=== PATIENT | male | born 1950 | race African-American/Black ===

== ENCOUNTER 2017-05-28 14:31 | Emergency (ER) | payer MEDICARE ==
[~2017-05-28] VITALS: Ht 188 cm; Wt 99.0 kg
[~2017-05-28 14:31] MED LIST: BRIM0.2S4 LEFT EYE; DORZ2SOL LEFT EYE; HYDR25TA5 PO; LATA0.002 EACH EYE; LEVO.075 PO; LOSA100T PO; LOVA20TA PO; PERC10TA27 PO; TRIMSOL EACH EYE; ZOFR4TAB3 SL
[2017-05-28 14:42] VITALS: BP 145/98; PULSE 80; RESP 16; TEMP 98.7; O2SAT 98
[2017-05-28] MEDS ORDERED: ORPHENADRINE INJ 60 MG/2 ML AMP IM ONE (15:30)
[2017-05-28] MEDS ORDERED: KETOROLAC TROMETHAMINE 60 MG/2 ML (IM) VIAL IM ONE (15:30)
[2017-05-28 16:50] VITALS: RESP 18
--- NOTE | 2017-05-28 16:57 | RADRPT ---
EXAM DATE/TIME: 05/28/2017 16:26 [facility] COMPARISON: CT ABDOMEN & PELVIS W CONTRAST, January 27, 2015, 19:10. INDICATIONS : Low back pain after lifting a lawnmower MEDICAL HISTORY : None. SURGICAL HISTORY : Neck surgery ENCOUNTER: Initial ACUITY: 1 week PAIN SCORE: 8/10 LOCATION: Bilateral low back FINDINGS: Mild superior endplate compression deformity at L5. Remaining vertebral body heights are intact. Size alignment is maintained. Mild degenerative spondylosis of the lower lumbar spine with mild multileve l facet arthropathy. Soft tissues are unremarkable. CONCLUSION: 1. Mild L5 superior end plate compression fracture. 2. Mild degenerative spondylosis of the lower lumbar spine. Mehran Lafleur MD on May 28, 2017 at 16:52 Board Certified Radiologist. This report was verified electronically.
[2017-05-28] MEDS ORDERED: NAPR500T2 PO (17:22)
[2017-05-28] MEDS ORDERED: ROBA750T PO (17:22)
--- NOTE | 2017-05-28 17:28 | PD ---
HPI Chief Complaint: Musculoskeletal Complaint Time Seen by Provider: 15:21 Travel History International Travel<30 days: No Contact w/Intl Traveler<30days: No Traveled to known affect area: No History of Present Illness HPI 67-year-old male patient presents emergency department for evaluation of lower back pain 10 days. Patient denies any injuries, falls, traumas precipitating the pain. After further questioning the patient states that he lifted a lawnmower into the back of his truck before the pain presented but it was not correlated with the start of the pain so he is not sure if that's the cause. Patient denies any fever, chills, malaise, abdominal pain, nausea, vomiting, shortness breath, chest pain. Patient denies any IV drug use, saddle numbness, incontinence of urine or stool. Patient is ambulatory from triage without a limp. 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, THROAT) Cardiovascular Problems: Yes (htn on meds) High Cholesterol: Yes Chemotherapy: Yes (2014) Congestive Heart Failure: No Cerebrovascular Accident: No Diabetes: No Diminished Hearing: No Endocrine: Yes Glaucoma: Yes ([place]) Genitourinary: No Hepatitis: No Hiatal Hernia: No Hypertension: Yes Immune Disorder: Yes Implanted Vascular Access Dvce: Yes Musculoskeletal: Yes (cervical fusion 2012) Neurologic: No Psychiatric: No Reproductive: No Respiratory: No Radiation Therapy: Yes (2 WEEKS AGO) Sleep Apnea: Yes (RESOLVED AFTER TONSILLECTOMY) Thyroid Disease: Yes (RADIATION) Influenza Vaccination: Yes Past Surgical History Abdominal Surgery: No AICD: No Cardiac Surgery: No Ear Surgery: No Endocrine Surgery: Yes (THYROID NODE REMOVED 2014) Eye Surgery: Yes (LEFT EYE CATARACT SX AND FOR GLUCOMA) Genitourinary Surgery: No Gynecologic Surgery: No Hysterectomy: No Joint Replacement: No Neurologic Surgery: No Oral Surgery: Yes (TONSILLECTOMY 10-11-14) Pacemaker: No Thoracic Surgery: No Tonsillectomy: Yes (cancer) Other Surgery: Yes Social History Alcohol Use: Yes (socially) Tobacco Use: No (QUIT 1994) Substance Use: No Allergies-Medications (Allergen,Severity, Reaction): Coded Allergies: No Known Allergies (Verified Adverse Reaction, Unknown, 05/28/17) Reported Meds & Prescriptions Reported Meds & Active Scripts Active Robaxin (Methocarbamol) 750 Mg Tab 750 Mg PO QID 10 Days Naproxen 500 Mg Tab 500 Mg PO BID 10 Days Zofran Odt (Ondansetron Odt) 4 Mg Tab 4 Mg SL Q6HR PRN Reported Percocet (Oxycodone-Acetaminophen) 10-325 mg Tab 1 Tab PO Q6H PRN Latanoprost Opth Drops (Latanoprost) 0.005% Drops 1 Drop EACH EYE HS Refrigerate until opened. Dorzolamide Opth Drops (Dorzolamide HCl) 2% Soln 2 Drop LEFT EYE BID Brimonidine Opth Drops (Brimonidine Tartrate) 0.2% Soln 1 Drop LEFT EYE BID Synthroid (Levothyroxine Sodium) 75 Mcg Tab 75 Mcg PO DAILY Lovastatin 20 Mg Tab 20 Mg PO HS Losartan (Losartan Potassium) 100 Mg Tab 100 Mg PO DAILY Hydrochlorothiazide 25 Mg Tab 25 Mg PO DAILY Review of Systems Except as stated in HPI: all other systems reviewed are Neg Physical Exam Narrative GENERAL: Well-nourished, well-developed 67-year-old male patient in no acute distress. Nontoxic-appearing. SKIN: Focused skin assessment warm/dry. HEAD: Normocephalic. Atraumatic. EYES: No scleral icterus. No injection or drainage. NECK: Supple, trachea midline. No JVD or lymphadenopathy. CARDIOVASCULAR: Regular rate and rhythm without murmurs, gallops, or rubs. RESPIRATORY: Breath sounds equal bilaterally. No accessory muscle use. GASTROINTESTINAL: Abdomen soft, non-tender, nondistended. MUSCULOSKELETAL: Range of motion noted in bilateral lower extremities. Bilateral lower extremities neurovascularly intact. No obvious deformity, ecchymosis, erythema, cyanosis, or edema. BACK: Midline tenderness of the lumbar spine with no obvious deformity, ecchymosis, erythema, cyanosis. No CVA tenderness. Data Data Last Documented VS Vital Signs Date Time Temp Pulse Resp B/P (MAP) Pulse Ox O2 Delivery O2 Flow Rate FiO2 05/28/17 16:50 18 05/28/17 14:42 98.7 80 145/98 (114) 98 Orders Orders Spine, Lumbar - Ltd (Ap & Lat) (05/28/17 15:21) Orphenadrine Inj (Norflex Inj) (05/28/17 15:30) Ketorolac Inj (Toradol Inj) (05/28/17 15:30) TLSO (05/28/17 ) Ed Discharge Order (05/28/17 17:28) [facility] Medical Decision Making Medical Screen Exam Complete: Yes Emergency Medical Condition: Yes Differential Diagnosis Differential diagnoses include but not limited to lumbar strain, lumbar sprain, contusion, fracture Narrative Course Lumbar spinal x-ray ordered and pending. Patient given an IM injection of Toradol and Norflex for pain management. On varus final x-ray shows mild L5 superior endplate compression fracture and mild degenerative spondylosis of the lower lumbar spine. Findings were discussed with patient. Patient will be discharged home with instructions to follow-up with neurosurgeon or return to the emergency Department with any acute worsening condition such as loss of feeling in his legs, incontinence of urine or stool. TLSO brace ordered. Patient given a prescription for Robaxin and naproxen to manage pain. Patient states she will follow up with neurosurgeon. Last Impressions Lumbar Spine X-Ray 05/28/17 1521 Signed Impressions: Service Date/Time: Tuesday, May 28, 2017 16:26 - CONCLUSION: 1. Mild L5 superior end plate compression fracture. 2. Mild degenerative spondylosis of the lower lumbar spine. Mehran Lafleur MD Diagnosis Primary Impression: Lumbar compression fracture Qualified Codes: S32.050A - Wedge compression fracture of fifth lumbar vertebra, initial encounter for closed fracture Referrals: Dipak Martinez MD Primary Care Physician Patient Instructions: General Instructions, Vertebral Compression Fracture (ED) Additional Instructions: Please return to emergency department if your symptoms return or worsen. Return to the emergency department immediately with any sudden loss of feeling in legs, incontinence of urine or stool or acute changes in status. Follow up with your primary care provider. Take medications as prescribed. May use heating packs or ice pads to manage pain. Follow-up with neurosurgeon. Med/Other Pt SpecificInfo: Prescription(s) given Scripts Methocarbamol (Robaxin) 750 Mg Tab 750 MG PO QID for Muscle Spasm for 10 Days, TAB 0 Refills Prov: Merissa San 05/28/17 Naproxen (Naproxen) 500 Mg Tab 500 MG PO BID for 10 Days, #20 TAB 0 Refills Prov: Merissa San 05/28/17 Disposition: 01 DISCHARGE HOME Condition: Stable Merissa San May 28, 2017 17:28
== END 2017-05-28 17:36 | disposition home or self-care (01) ==
LOC: PHEFT 14:31
DX: S32.050A Wedge compression fracture of fifth lumbar vertebra, initial encounter for closed fracture (principal); E78.00 Pure hypercholesterolemia, unspecified; I10 Essential (primary) hypertension; X58.XXXA Exposure to other specified factors, initial encounter
CPT/HCPCS: 72100; 96372; 99284; J1885; J2360